=== PATIENT | male | born 1965 | race Caucasian/White ===

== ENCOUNTER 2018-08-23 09:55 | Emergency (ER) | payer OTHER ==
[~2018-08-23] VITALS: Ht 188 cm; Wt 124.3 kg
[~2018-08-23 09:55] MED LIST: ALPR.5 PO; AMOCLA875 PO; CEPH500 PO; DOC250 PO; DULO30 PO; GLIM4 PO; HYDACE10B PO; HYDACE5; HYDMOR2 PO; IBUHYD; IBUP800 PO; META800 PO; METH10 PO; OXYACE10 PO; OXYACE5T PO; OXYACE7.5T; OXYC15ER PO; PROM25 PO; PROM25S PR; ROXICODONE; VARE1 PO
[2018-08-23] MEDS ORDERED: METF500C PO (10:20)
[2018-08-23] MEDS ORDERED: LOVA40 (10:20)
[2018-08-23] MEDS ORDERED: LOSA25 PO (10:20)
[2018-08-23] MEDS ORDERED: BAYER CHEWABLE81 MG PO (10:21)
[2018-08-23 10:55] LABS: BASOPHILS ABSOLUTE AUTO 0.06 K/mm3 (0.00-0.23); BASOPHILS PERCENT AUTO 1 % (0-2); EOSINOPHILS PERCENT AUTO 3 % (0-6); Hematocrit 43.1 % (37.0-53.0); Hemoglobin 14.9 g/dL (13.5-17.5); IMMATURE GRAN ABSOLUTE AUTO 0.02 K/mm3 (0.00-0.10); IMMATURE GRAN PERCENT AUTO 0 % (0-1); LYMPHOCYTES ABSOLUTE AUTO 1.72 K/mm3 (0.84-5.20); LYMPHOCYTES PERCENT AUTO 22 % (21-46); MONOCYTES ABSOLUTE AUTO 0.47 K/mm3 (0.16-1.47); MONOCYTES PERCENT AUTO 6 % (4-13); Mean Corpuscular HGB 30.7 pg (26.0-34.0); Mean Corpuscular HGB Conc 34.6 g/dL (31.5-36.5); Mean Corpuscular Volume 89 fL (80-100); Mean Platelet Volume 8.9 fL (9.1-12.4); NEUTROPHILS ABSOLUTE AUTO 5.35 K/mm3 (1.96-9.15); NEUTROPHILS PERCENT AUTO 68 % (41-73); Platelet Count 252 K/mm3 (150-400); RDW Coefficient Variation 11.7 % (11.7-14.2); RDW Standard Deviation 37.1 fL (35.1-46.3); Red Blood Cell Count 4.85 M/mm3 (4.30-5.90); White Blood Cell Count 7.82 K/mm3 (4.00-11.30)
[2018-08-23 12:06] LABS: Alanine Aminotransfer (ALT/SGP 95 U/L (12-78); Albumin/Globulin Ratio 1.1 (0.8-1.8); Alk Phos 118 U/L (50-136); Anion Gap 11 mmol/L (6-16); Aspartate Aminotrans (AST/SGOT 35 U/L (12-37); Bilirubin, Total 0.3 mg/dL (0.1-1.0); Blood Urea Nitrogen 17 mg/dL (8-24); Bun/Creatinine Ratio 17.6 (12.0-20.0); CO2, Blood 23 mmol/L (21-32); Chloride, Blood 102 mmol/L (98-108); Creatinine, Blood 0.97 mg/dL (0.60-1.20); Globulin, Blood 3.8 g/dL (2.2-4.0); Glomerular Filtration Rate >60 (60-); Glucose, Blood 336 mg/dL (70-99); Sodium, Blood 136 mmol/L (136-145); Total Protein, Blood 7.8 g/dL (6.4-8.2)
[2018-08-23 12:27] LABS: Base Excess Venous -0.7 mmol/L; PCO2 Venous 38.7 mmHg (38-42); PO2 Venous 133 mmHg (38-42)
[2018-08-23] MEDS ORDERED: GLIM2 PO (13:21)
== END 2018-08-23 13:41 | disposition home or self-care (01) ==
LOC: ER 09:55
PROVIDERS: Physician Assistant
DX: E11.65 Type 2 diabetes mellitus with hyperglycemia (principal); Z91.041 Radiographic dye allergy status; Z88.5 Allergy status to narcotic agent; Z79.84 Long term (current) use of oral hypoglycemic drugs; Z79.899 Other long term (current) drug therapy; Z79.82 Long term (current) use of aspirin; E78.5 Hyperlipidemia, unspecified; I10 Essential (primary) hypertension; Z87.891 Personal history of nicotine dependence
CPT/HCPCS: 36415; 80053; 82803; 82947; 83036; 85025; 93005; 93010; 99285-25

== ENCOUNTER → 2018-10-14 | Outpatient (CLI) | payer MEDICARE, OTHER ==
[~2018-10-14] MED LIST changes: +BAYER CHEWABLE81 MG PO; +GLIM2 PO; +LOSA25 PO; +LOVA40; +METF500C PO
[2018-10-14 17:35] LABS: BASOPHILS ABSOLUTE AUTO 0.07 K/mm3 (0.00-0.23); BASOPHILS PERCENT AUTO 1 % (0-2); EOSINOPHILS ABSOLUTE AUTO 0.23 K/mm3 (0.00-0.68); EOSINOPHILS PERCENT AUTO 3 % (0-6); Hematocrit 43.9 % (37.0-53.0); Hemoglobin 14.9 g/dL (13.5-17.5); IMMATURE GRAN ABSOLUTE AUTO 0.01 K/mm3 (0.00-0.10); IMMATURE GRAN PERCENT AUTO 0 % (0-1); LYMPHOCYTES ABSOLUTE AUTO 1.86 K/mm3 (0.84-5.20); LYMPHOCYTES PERCENT AUTO 21 % (21-46); MONOCYTES ABSOLUTE AUTO 0.61 K/mm3 (0.16-1.47); MONOCYTES PERCENT AUTO 7 % (4-13); Mean Corpuscular HGB 30.6 pg (26.0-34.0); Mean Corpuscular HGB Conc 33.9 g/dL (31.5-36.5); Mean Corpuscular Volume 90 fL (80-100); Mean Platelet Volume 9.3 fL (9.1-12.4); NEUTROPHILS ABSOLUTE AUTO 6.16 K/mm3 (1.96-9.15); NEUTROPHILS PERCENT AUTO 69 % (41-73); Platelet Count 299 K/mm3 (150-400); RDW Coefficient Variation 11.7 % (11.7-14.2); RDW Standard Deviation 38.3 fL (35.1-46.3); Red Blood Cell Count 4.87 M/mm3 (4.30-5.90); White Blood Cell Count 8.94 K/mm3 (4.00-11.30)
[2018-10-14 17:55] LABS: Alanine Aminotransfer (ALT/SGP 135 U/L (12-78); Albumin, Blood 4.3 g/dL (3.4-5.0); Albumin/Globulin Ratio 1.1 (0.8-1.8); Alk Phos 97 U/L (50-136); Anion Gap 9 mmol/L (6-16); Aspartate Aminotrans (AST/SGOT 57 U/L (12-37); Bilirubin, Total 0.3 mg/dL (0.1-1.0); Blood Urea Nitrogen 17 mg/dL (8-24); Bun/Creatinine Ratio 16.3 (12.0-20.0); CO2, Blood 25 mmol/L (21-32); Chloride, Blood 104 mmol/L (98-108); Creatinine, Blood 1.04 mg/dL (0.60-1.20); Globulin, Blood 3.8 g/dL (2.2-4.0); Glomerular Filtration Rate >60 (60-); Glucose, Blood 235 mg/dL (70-99); Potassium, Blood 3.9 mmol/L (3.5-5.5); Sodium, Blood 138 mmol/L (136-145); Total Protein, Blood 8.1 g/dL (6.4-8.2)
[2018-10-17 10:07] LABS: FREE TESTOSTERONE(DIRECT) 3.7 pg/mL (7.2-24.0); TESTOSTERONE, SERUM 182 ng/dL (264-916)
== END | disposition home or self-care (01) ==
LOC: LAB 16:10 → LAB SHORT 16:10
PROVIDERS: Nurse Practitioner
DX: E29.1 Testicular hypofunction (principal)
CPT/HCPCS: 80053; 83036; 84402; 84403; 85025

== ENCOUNTER 2019-01-01 08:14 | Day surgery (SDC) | payer MEDICARE, OTHER ==
[~2019-01-01] VITALS: Ht 188 cm; Wt 119.0 kg
--- NOTE | 2019-01-01 08:59 | NUR ---
Ambulatory in Day SurgeryPatient states colon prep results clear. History, Chart, Medications and Allergies reviewed before start of procedure.Lungs clear T/O to Auscultation. Patient confirms NPO status and agrees with scheduled surgery. Patient States Post-Procedure ride home has been arranged.
--- NOTE | 2019-01-01 09:11 | NUR ---
PT REPORTS 4/10 PAIN TO RIGHT SHOULDER.
--- NOTE | 2019-01-01 10:14 | NUR ---
01/01/19 1014 Zyara Virgen History, Chart, Medications and Allergies reviewed before start of procedure.PATIENT DETERMINED TO BE ASA APPROPRIATE FOR PROPOFOL SEDATION PRIOR TO START OF PROCEDURE BY .MONITOR INTACT WITH CONTINUOUS PULSE OXIMETRY AND INTERMITTENT BP.3-LEAD EKG REVIEWED WITH PHYSICIAN PRIOR TO START OF PROCEDURE.O2 VIA N/C INTACT THROUGHOUT SEDATION/PROCEDURE.
--- NOTE | 2019-01-01 11:04 | NUR ---
Discharge instructions reviewed with patient. Patient verbalizes understanding. Copy given to patient to take home. Patient up to Ambulate independently. Gait steady. Patient States Post-Procedure ride home has been arranged. Discharged via wheelchair to private car for ride home.
== END 2019-01-01 22:45 | disposition home or self-care (01) ==
LOC: ORSCMMR 08:14 → ORD 09:30 → ORSCMMR 09:30
PROVIDERS: Internal Medicine Gastroenterology
PROC: 0DBN8ZX Excision of Sigmoid Colon, Via Natural or Artificial Opening Endoscopic, Diagnostic (ICD-10-PCS; principal; 2019-01-01 09:30)
DX: Z12.11 Encounter for screening for malignant neoplasm of colon (principal); D12.5 Benign neoplasm of sigmoid colon; E11.9 Type 2 diabetes mellitus without complications; E78.00 Pure hypercholesterolemia, unspecified; I10 Essential (primary) hypertension; Z79.84 Long term (current) use of oral hypoglycemic drugs; Z79.899 Other long term (current) drug therapy
CPT/HCPCS: 82947; 88305; J2250; J2704; J7120

== ENCOUNTER 2019-04-12 23:12 | Observation (INO) | payer MEDICARE, OTHER ==
[~2019-04-12] VITALS: Ht 188 cm; Wt 110.7 kg
[2019-04-12 23:34] LABS: BASOPHILS ABSOLUTE AUTO 0.07 K/mm3 (0.00-0.23); BASOPHILS PERCENT AUTO 1 % (0-2); EOSINOPHILS ABSOLUTE AUTO 0.12 K/mm3 (0.00-0.68); EOSINOPHILS PERCENT AUTO 1 % (0-6); Hematocrit 48.2 % (37.0-53.0); Hemoglobin 15.9 g/dL (13.5-17.5); IMMATURE GRAN ABSOLUTE AUTO 0.04 K/mm3 (0.00-0.10); IMMATURE GRAN PERCENT AUTO 0 % (0-1); LYMPHOCYTES ABSOLUTE AUTO 4.18 K/mm3 (0.84-5.20); LYMPHOCYTES PERCENT AUTO 39 % (21-46); MONOCYTES ABSOLUTE AUTO 0.86 K/mm3 (0.16-1.47); MONOCYTES PERCENT AUTO 8 % (4-13); Mean Corpuscular HGB 30.2 pg (26.0-34.0); Mean Corpuscular Volume 92 fL (80-100); Mean Platelet Volume 8.1 fL (9.1-12.4); NEUTROPHILS ABSOLUTE AUTO 5.48 K/mm3 (1.96-9.15); NEUTROPHILS PERCENT AUTO 51 % (41-73); Platelet Count 304 K/mm3 (150-400); RDW Coefficient Variation 13.4 % (11.7-14.2); RDW Standard Deviation 45.7 fL (35.1-46.3); Red Blood Cell Count 5.27 M/mm3 (4.30-5.90); White Blood Cell Count 10.75 K/mm3 (4.00-11.30)
[2019-04-12 23:53] LABS: Alanine Aminotransfer (ALT/SGP 48 U/L (12-78); Albumin, Blood 3.8 g/dL (3.4-5.0); Alk Phos 66 U/L (50-136); Anion Gap 9 mmol/L (6-16); Aspartate Aminotrans (AST/SGOT 36 U/L (12-37); Bilirubin, Total 0.6 mg/dL (0.1-1.0); Blood Urea Nitrogen 14 mg/dL (8-24); Bun/Creatinine Ratio 11.7 (12.0-20.0); CO2, Blood 28 mmol/L (21-32); Calcium, Blood 9.1 mg/dL (8.5-10.1); Chloride, Blood 104 mmol/L (98-108); Ethanol (Alcohol), Blood, Med <3 mg/dL; Globulin, Blood 3.7 g/dL (2.2-4.0); Glomerular Filtration Rate >60 (60-); Glucose, Blood 111 mg/dL (70-99); Potassium, Blood 3.7 mmol/L (3.5-5.5); Sodium, Blood 141 mmol/L (136-145); Total Protein, Blood 7.5 g/dL (6.4-8.2)
[2019-05-01] MEDS ORDERED: GLIM2 PO (13:47)
[2019-05-01] MEDS ORDERED: LOSA25 PO (13:47)
[2019-05-01] MEDS ORDERED: Altoprev40 MG PO (13:47)
[2019-05-01] MEDS ORDERED: Depo-Testos200 MG/ML IM (13:47)
[2019-05-01] MEDS ORDERED: Aspir 8181 MG PO (13:48)
[2019-05-01] MEDS ORDERED: METF500C PO (13:48)
[2019-05-01] MEDS ORDERED: GYMNEMA SYLVESTRE PO (13:48)
[2019-05-01] MEDS ORDERED: SILD50TA PO (13:49)
== END 2019-04-13 05:58 | disposition home or self-care (01) ==
LOC: ER 23:12 → EOR 23:13
PROVIDERS: Emergency Medicine; ADMIT Emergency Medicine
DX: T44.901A Poisoning by unspecified drugs primarily affecting the autonomic nervous system, accidental (unintentional), initial encounter (principal); F19.10 Other psychoactive substance abuse, uncomplicated; Z79.84 Long term (current) use of oral hypoglycemic drugs; Z79.899 Other long term (current) drug therapy; Z91.041 Radiographic dye allergy status
CPT/HCPCS: 36415; 80053; 85025; 93005; 93010; 96374; 99285-25; G0378; G0480; J2060; J7030

== ENCOUNTER → 2019-05-02 | Outpatient (CLI) | payer MEDICARE, OTHER ==
[~2019-05-02] MED LIST changes: +Altoprev40 MG PO; +Aspir 8181 MG PO; +Depo-Testos200 MG/ML IM; +GYMNEMA SYLVESTRE PO; +SILD50TA PO
[2019-05-02 17:01] LABS: U Amphetamine Screen DETECTED; U Barbituate Screen Not Detected; U Benzodiazapine Screen Not Detected; U Buprenorphine Screen Not Detected; U Cannabinoids Screen Not Detected; U Cocaine Screen Not Detected; U Methadone Screen Not Detected; U Methamphetamine Screen DETECTED; U Opiates Screen Not Detected; U Oxycodone Screen Not Detected; U Phencyclidine Screen Not Detected; U Propoxyphene Screen Not Detected
== END | disposition home or self-care (01) ==
LOC: LAB SHORT 12:39 → LAB 12:39 → LAB FUT 04-23 17:20
PROVIDERS: Otolaryngology
DX: J33.9 Nasal polyp, unspecified (principal); S29.011A Strain of muscle and tendon of front wall of thorax, initial encounter; J34.3 Hypertrophy of nasal turbinates; F15.20 Other stimulant dependence, uncomplicated

== ENCOUNTER 2019-05-07 08:36 | Day surgery (SDC) | payer MEDICARE, OTHER ==
[~2019-05-07] VITALS: Ht 182.9 cm; Wt 104.7 kg
== END 2019-05-07 11:25 | disposition home or self-care (01) ==
LOC: ORSCSDS 08:36
PROVIDERS: Otolaryngology
PROC: 09BM0ZZ Excision of Nasal Septum, Open Approach (ICD-10-PCS; principal; 2019-05-07 09:50)
PROC: 09TL0ZZ Resection of Nasal Turbinate, Open Approach (ICD-10-PCS; principal; 2019-05-07 09:50)
DX: J34.2 Deviated nasal septum (principal); J34.3 Hypertrophy of nasal turbinates; I10 Essential (primary) hypertension; E11.9 Type 2 diabetes mellitus without complications; Z87.891 Personal history of nicotine dependence; Z79.899 Other long term (current) drug therapy; Z79.82 Long term (current) use of aspirin
CPT/HCPCS: 82947; J1100; J2250; J2370; J2405; J2704; J2710; J3010; J7120

== ENCOUNTER → 2020-07-12 | Outpatient (CLI) | payer MEDICARE, OTHER ==
[2020-07-12 16:57] LABS: BASOPHILS PERCENT AUTO 1 % (0-2); EOSINOPHILS ABSOLUTE AUTO 0.25 K/mm3 (0.00-0.68); EOSINOPHILS PERCENT AUTO 3 % (0-6); Hematocrit 46.7 % (37.0-53.0); Hemoglobin 16.2 g/dL (13.5-17.5); IMMATURE GRAN ABSOLUTE AUTO 0.04 K/mm3 (0.00-0.10); IMMATURE GRAN PERCENT AUTO 1 % (0-1); LYMPHOCYTES ABSOLUTE AUTO 2.48 K/mm3 (0.84-5.20); LYMPHOCYTES PERCENT AUTO 28 % (21-46); MONOCYTES ABSOLUTE AUTO 0.64 K/mm3 (0.16-1.47); MONOCYTES PERCENT AUTO 7 % (4-13); Mean Corpuscular HGB 31.1 pg (26.0-34.0); Mean Corpuscular HGB Conc 34.7 g/dL (31.5-36.5); Mean Corpuscular Volume 90 fL (80-100); Mean Platelet Volume 8.5 fL (9.1-12.4); NEUTROPHILS ABSOLUTE AUTO 5.23 K/mm3 (1.96-9.15); NEUTROPHILS PERCENT AUTO 60 % (41-73); Platelet Count 311 K/mm3 (150-400); RDW Coefficient Variation 12.1 % (11.7-14.2); RDW Standard Deviation 39.6 fL (35.1-46.3); Red Blood Cell Count 5.21 M/mm3 (4.30-5.90); White Blood Cell Count 8.74 K/mm3 (4.00-11.30)
[2020-07-12 17:06] LABS: Albumin, Blood 4.1 g/dL (3.4-5.0); Albumin/Globulin Ratio 0.9 (0.8-1.8); Bilirubin, Total 0.3 mg/dL (0.1-1.0); Bun/Creatinine Ratio 13.8 (12.0-20.0); Calcium, Blood 9.5 mg/dL (8.5-10.1); Creatinine, Blood 1.3 mg/dL (0.60-1.20); Globulin, Blood 4.4 g/dL (2.2-4.0); Potassium, Blood 4.6 mmol/L (3.5-5.5); Total Protein, Blood 8.5 g/dL (6.4-8.2)
== END ==
LOC: LAB SHORT 16:51 → LAB EV 16:51
PROVIDERS: Physician Assistant
DX: R07.89 Other chest pain (principal)
CPT/HCPCS: 80053; 84484; 85025; 85379

== ENCOUNTER 2021-06-16 06:04 | Day surgery (SDC) | payer OTHER ==
[~2021-06-16] VITALS: Ht 188 cm; Wt 122.2 kg
--- NOTE | 2021-06-16 14:32 | NUR ---
06/16/21 1432 Megan Allen PROCEDURE CANCELLED BY SURGEON AND ANESTHESIOLOGIS D/T CHEM BG 350. PT AMBULATED OUT OF FACILITY.
== END 2021-06-16 07:15 | disposition home or self-care (01) ==
LOC: ORSCSDS 06:04
DX: G56.01 Carpal tunnel syndrome, right upper limb (principal); Z53.9 Procedure and treatment not carried out, unspecified reason
CPT/HCPCS: 82947; J0690; J7120

== ENCOUNTER 2021-10-22 06:37 | Day surgery (SDC) | payer OTHER ==
[~2021-10-22] VITALS: Ht 185.4 cm; Wt 125.5 kg
[2021-10-22] MEDS ORDERED: NAPR500 PO (07:18)
[2021-10-22] MEDS ORDERED: PRAZ2 PO (07:20)
[2021-10-22] MEDS ORDERED: PIOGLITAZONE HC45 MG PO (07:21)
== END 2021-10-22 08:40 | disposition home or self-care (01) ==
LOC: ORSCSDS 06:37
PROVIDERS: Orthopaedic Surgery
PROC: 01N50ZZ Release Median Nerve, Open Approach (ICD-10-PCS; principal; 2021-10-22 08:15)
DX: G56.01 Carpal tunnel syndrome, right upper limb (principal); E11.9 Type 2 diabetes mellitus without complications; I10 Essential (primary) hypertension; E66.9 Obesity, unspecified; Z68.36 Body mass index [BMI] 36.0-36.9, adult; Z79.84 Long term (current) use of oral hypoglycemic drugs; Z79.899 Other long term (current) drug therapy
CPT/HCPCS: 82947; J0690; J2250; J2704; J3010

== ENCOUNTER 2022-02-23 07:28 | Day surgery (SDC) | payer OTHER ==
[~2022-02-23] VITALS: Ht 185.4 cm; Wt 124.5 kg
[~2022-02-23 07:28] MED LIST changes: +NAPR500 PO; +PIOGLITAZONE HC45 MG PO; +PRAZ2 PO
== END 2022-02-23 10:18 | disposition home or self-care (01) ==
LOC: ORSCSDS 07:28
PROVIDERS: Orthopaedic Surgery
PROC: 01N50ZZ Release Median Nerve, Open Approach (ICD-10-PCS; principal; 2022-02-23 09:00)
DX: G56.02 Carpal tunnel syndrome, left upper limb (principal); I10 Essential (primary) hypertension; E11.9 Type 2 diabetes mellitus without complications; F32.A Depression, unspecified; E66.9 Obesity, unspecified; Z68.36 Body mass index [BMI] 36.0-36.9, adult; Z87.891 Personal history of nicotine dependence; Z79.84 Long term (current) use of oral hypoglycemic drugs; Z79.899 Other long term (current) drug therapy
CPT/HCPCS: 82947; J0690; J2250; J2704; J3010; J7120